=== PATIENT | male | born 1995 | race Caucasian/White ===

== ENCOUNTER 2017-01-14 14:31 | Emergency (ER) | payer OTHER ==
[2017-01-14 14:43] VITALS: BP 128/70; PULSE 96; RESP 20; TEMP 98.7; O2SAT 99
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
--- NOTE | 2017-01-14 16:00 | RAD ---
PROCEDURE: Radiographs of the Right Shoulder HISTORY: right shoulder, pain No antecedent history of trauma provided. COMPARISON: No prior. FINDINGS: BONES: Normal. No fracture. JOINTS: Normal. Glenohumeral and acromioclavicular joints preserved. No osteoarthritis. SOFT TISSUES: Normal. OTHER FINDINGS: None. IMPRESSION: Normal radiographs of the right shoulder.
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
--- NOTE | 2017-01-14 16:35 | RAD ---
PROCEDURE: Radiographs of the Lumbar Spine. HISTORY: Low back pain COMPARISON: No prior. FINDINGS: BONES: Normal alignment. No listhesis. No fracture. DISC SPACES: Unremarkable. OTHER FINDINGS: None. IMPRESSION: Unremarkable radiographs of the lumbar spine.
[2017-01-14 16:37] LABS: RBC URINE 2 /hpf (0-3); URINE BACTERIA RARE (<OCC); URINE BILIRUBIN NEGATIVE (NEGATIVE); URINE BLOOD NEGATIVE (NEGATIVE); URINE COLOR YELLOW (YELLOW); URINE GLUCOSE (UA) NEG (Normal); URINE KETONE NEGATIVE (NEGATIVE); URINE LEUKOCYTE ESTERASE NEG Leu/uL (Negative); URINE PROTEIN NEGATIVE (NEGATIVE); URINE UROBILINOGEN 0.2-1.0 mg/dL (0.2-1.0); WBC URINE < 1 /hpf (0-5)
--- NOTE | 2017-01-14 16:37 | CT ---
PROCEDURE: CT HEAD WITHOUT CONTRAST. HISTORY: head injury COMPARISON: 08/20/2014 TECHNIQUE: Axial computed tomography images were obtained through the head/brain without intravenous contrast. Radiation dose: Total exam DLP = 950.09 mGy-cm. This CT exam was performed using one or more of the following dose reduction techniques: Automated exposure control, adjustment of the mA and/or kV according to patient size, and/or use of iterative reconstruction technique. FINDINGS: HEMORRHAGE: No intracranial hemorrhage. BRAIN: No mass effect or edema. No atrophy or chronic microvascular ischemic changes. VENTRICLES: Unremarkable. No hydrocephalus. CALVARIUM: Unremarkable. PARANASAL SINUSES: Unremarkable as visualized. No significant inflammatory changes. MASTOID AIR CELLS: Unremarkable as visualized. No inflammatory changes. OTHER FINDINGS: None. IMPRESSION: No intracranial hemorrhage. Unremarkable head CT examination.
== END 2017-01-14 17:28 | disposition home or self-care (01) ==
LOC: H.ER 14:31
DX: S09.90XA Unspecified injury of head, initial encounter (principal); M54.9 Dorsalgia, unspecified; M25.511 Pain in right shoulder; M25.561 Pain in right knee; Y35.813A Legal intervention involving manhandling, suspect injured, initial encounter; Y92.410 Unspecified street and highway as the place of occurrence of the external cause

== ENCOUNTER 2017-08-04 06:58 | Emergency (ER) | payer OTHER ==
[2017-08-04 07:13] VITALS: BP 140/65; PULSE 92; RESP 18; TEMP 97.7; O2SAT 98
[2017-08-04] MEDS ORDERED: Sodium Chloride 0.9% 1,000 ML IV STA (07:27)
[2017-08-04] MEDS ORDERED: Iohexol 240 (50 ml) PO ONE (07:27)
[2017-08-04] MEDS ORDERED: Iohexol 240 (50 ml) ONE (07:34)
--- NOTE | 2017-08-04 07:41 | ED PDOC ---
HPI: Abdomen Time Seen by Provider: 08/04/17 07:09 Chief Complaint (Nursing): Abdominal Pain Chief Complaint (Provider): Abdominal Pain History Per: Patient History/Exam Limitations: no limitations Onset/Duration Of Symptoms: Days (x1) Current Symptoms Are (Timing): Still Present Additional Complaint(s): Andrew Rich is a 21 year old male presenting to the ED for an evaluation of diffuse abdominal pain associated with nausea and constipation occurring since yesterday. The patient reports this pain is sharp, constant, worsens with movement, and also states taking Tums without relief. He reports last bowel movement occurring at 8 PM. He denies vomiting, chest pain, testicular pain, dysuria, fever, chills, shortness of breath, dizziness, numbness, tingling, weakness, or headache. PMD: None Provided Past Medical History Reviewed: Historical Data, Nursing Documentation, Vital Signs Vital Signs: Last Vital Signs Temp 97.7 F 08/04/17 07:12 Pulse 92 H 08/04/17 07:12 Resp 18 08/04/17 07:12 BP 140/65 08/04/17 07:12 Pulse Ox 98 08/04/17 07:46 - Medical History PMH: No Chronic Diseases - Surgical History Surgical History: No Surg Hx - Family History Family History: States: No Known Family Hx - Social History Alcohol: None Drugs: Denies - Home Medications Home Medications: Ambulatory Orders Medication Instructions Recorded Naproxen [Naprosyn] 500 mg PO Q12H #20 tab 08/20/14 Cyclobenzaprine [Cyclobenzaprine 10 mg PO Q8H PRN #12 tab 01/14/17 HCl] traMADol [Ultram] 50 mg PO Q6H PRN #5 tab 01/14/17 Ciprofloxacin HCl [Cipro] 500 mg PO BID 7 Days tab 08/04/17 Ibuprofen [Motrin] 600 mg PO TID 7 Days tab 08/04/17 Metronidazole [Flagyl] 500 mg PO TID 7 Days tablet 08/04/17 - Allergies Allergies/Adverse Reactions: Allergies Allergy/AdvReac Type Severity Reaction Status Date / Time No Known Allergies Allergy Verified 01/14/17 14:38 Review of Systems ROS Statement: Except As Marked, All Systems Reviewed And Found Negative Constitutional: Negative for: Fever, Chills Cardiovascular: Negative for: Chest Pain Respiratory: Negative for: Shortness of Breath Gastrointestinal: Positive for: Nausea, Abdominal Pain (diffuse), Constipation. Negative for: Vomiting, Diarrhea Genitourinary Male: Negative for: Dysuria, Frequency, Incontinence, Scrotal Pain , Penile Pain Neurological: Negative for: Weakness, Numbness, Headache, Dizziness, Other (no tingling) Physical Exam - Reviewed Nursing Documentation Reviewed: Yes Vital Signs Reviewed: Yes - Physical Exam Appears: Positive for: Non-toxic, No Acute Distress Head Exam: Positive for: ATRAUMATIC, NORMOCEPHALIC Skin: Positive for: Normal Color, Warm, Dry Eye Exam: Positive for: Normal appearance, EOMI Neck: Positive for: Normal, Painless ROM, Supple Cardiovascular/Chest: Positive for: Regular Rate, Rhythm, Chest Non Tender. Negative for: Murmur Respiratory: Positive for: Normal Breath Sounds. Negative for: Respiratory Distress Gastrointestinal/Abdominal: Positive for: Soft, Tenderness (mild diffuse), Guarding. Negative for: Distended Back: Positive for: Normal Inspection. Negative for: L CVA Tenderness, R CVA Tenderness, Vertebral Tenderness Extremity: Positive for: Normal ROM. Negative for: Pedal Edema, Deformity Neurologic/Psych: Positive for: Alert, Oriented (x3). Negative for: Motor/ Sensory Deficits - Laboratory Results Result Diagrams: 08/04/17 07:54 08/04/17 07:54 Interpretation Of Abn Labs: 12.2 wbc - ECG O2 Sat by Pulse Oximetry: 98 (RA) Pulse Ox Interpretation: Normal - CT Scan/US ct Other Rad Studies (CT/US): Read By Radiologist Other Rad Interpretation: colitis - Progress ED Course And Treament: 1200: Stable. AAOx3. Tolerated PO. Colitis. Fu with GI. Pain free. Medical Decision Making Medical Decision Making: Time: 07:09 Impression: Mild, diffuse abdominal pain with nausea and constipation Plan: * VBG * CMP * Lipase * CBC (with differential) * NS 0.9% 1,000 ml IV 1,000 mls/hr * Omnipaque 240 (50 mL) PO * Zofran 4 mg IV * CT Abd Pelvis PO & IV Contrast * [RAD] Chest portable * Reevaluation Scribe Attestation: Documented by Lyric Martin, acting as a scribe for Librado Stiles MD. Provider Scribe Attestation: All medical record entries made by the Scribe were at my direction and personally dictated by me. I have reviewed the chart and agree that the record accurately reflects my personal performance of the history, physical exam, medical decision making, and the department course for this patient. I have also personally directed, reviewed, and agree with the discharge instructions and disposition. Disposition - Clinical Impression Clinical Impression: Colitis - Patient ED Disposition Is Patient to be Admitted: No Counseled Patient/Family Regarding: Studies Performed, Diagnosis, Need For Followup, Rx Given - Disposition Referrals: Wander Rausch MD, PhD [Staff Provider] - 08/05/17 [facility] [Outside] - 08/05/17 Disposition: Routine/Home Disposition Time: 12:05 Condition: STABLE Additional Instructions: Return if not better in 3 days. Prescriptions: Ciprofloxacin HCl [Cipro] 500 mg PO BID 7 Days tab Ibuprofen [Motrin] 600 mg PO TID 7 Days tab Metronidazole [Flagyl] 500 mg PO TID 7 Days tablet Instructions: Colitis (ED) Forms: [employer] (Cuban)
[2017-08-04 07:54] LABS: VENOUS BLOOD GAS BASE EXCESS 4.6 mmol/L (0.0-2.0); VENOUS BLOOD GAS PCO2 48 mmHg (40-60); VENOUS BLOOD PH 7.41 (7.32-7.43)
[2017-08-04 07:58] LABS: BASO % 0.2 % (0.0-2.0); EOS # 0.1 K/uL (0.0-0.7); EOS % 0.6 % (0.0-4.0); HEMATOCRIT 46.7 % (35.0-51.0); LYMPH # 0.5 K/uL (1.0-4.3); LYMPH % 3.9 % (20.0-40.0); MEAN CELL VOLUME 87.7 fl (80.0-94.0); MEAN CORPUSCULAR HEMOGLOBIN 28.8 pg (27.0-31.0); MEAN CORPUSCULAR HGB CONC 32.8 g/dL (33.0-37.0); MEAN PLATELET VOLUME 9.2 fl (7.2-11.7); MONO # 0.6 K/uL (0.0-0.8); MONO % 5.1 % (0.0-10.0); NEUT % 90.2 % (50.0-75.0); NRBC % 0.1 % (0.0-0.0); PLATELET COUNT 201 K/uL (130-400); RED CELL DISTRIBUTION WIDTH 13.6 % (11.5-14.5); WHITE BLOOD COUNT 12.2 K/uL (4.8-10.8)
[2017-08-04 08:14] LABS: ALB/GLOB RATIO 1.1 (1.0-2.1); ALKALINE PHOSPHATASE 73 U/L (38-126); ALT/SGPT 67 U/L (21-72); AST/SGOT 48 U/L (17-59); BILIRUBIN,TOTAL 0.9 mg/dl (0.2-1.3); BLOOD UREA NITROGEN 12 mg/dl (9-20); CALCIUM 9.7 mg/dL (8.4-10.2); CARBON DIOXIDE 28 mmol/L (22-30); CHLORIDE 100 mmol/L (98-107); GFR AFRICAN-AMERICAN > 60; GLUCOSE,RANDOM 121 mg/dL (75-110); LIPASE 28 U/L (23-300); POTASSIUM 4.4 MMOL/L (3.6-5.0); SODIUM 137 mmol/l (132-148); TOTAL PROTEIN 8.2 G/DL (6.3-8.2)
--- NOTE | 2017-08-04 08:21 | RAD ---
HISTORY: dyspnea COMPARISON: No prior. FINDINGS: LUNGS: No active pulmonary disease. PLEURA: No significant pleural effusion identified, no pneumothorax apparent. CARDIOVASCULAR: Normal. OSSEOUS STRUCTURES: No significant abnormalities. VISUALIZED UPPER ABDOMEN: Normal. OTHER FINDINGS: None. IMPRESSION: No active disease.
[2017-08-04] MEDS ORDERED: Iohexol 300 100 ML IJ ONE (09:19)
[2017-08-04] MEDS ORDERED: Sodium Chloride 0.9% 50 ML IV ONE (09:19)
[2017-08-04 10:14] LABS: NEUTROPHIL 88 % (42-75); TOTAL CELLS COUNTED 100
--- NOTE | 2017-08-04 11:07 | CT ---
PROCEDURE: CT Abdomen and Pelvis with contrast HISTORY: Abdominal pain COMPARISON: None. TECHNIQUE: Contrast dose: 100 cc Omnipaque 300. Radiation dose: Total exam DLP = 583.89 mGy-cm. This CT exam was performed using one or more of the following dose reduction techniques: Automated exposure control, adjustment of the mA and/or kV according to patient size, and/or use of iterative reconstruction technique. FINDINGS: LOWER THORAX: Unremarkable. LIVER: Unremarkable. No gross lesion or ductal dilatation. GALLBLADDER AND BILE DUCTS: Unremarkable. PANCREAS: Unremarkable. No gross lesion or ductal dilatation. SPLEEN: Unremarkable. ADRENALS: Unremarkable. No mass. KIDNEYS AND URETERS: Unremarkable. No hydronephrosis. No solid mass. VASCULATURE: Unremarkable. No aortic aneurysm. BOWEL: Thickening of the wall of the ascending colon which may represent very mild right edward colitis. Transverse colon, descending colon, sigmoid and rectum are spared. APPENDIX: Normal appendix. PERITONEUM: Unremarkable. No free fluid. No free air. LYMPH NODES: Unremarkable. No enlarged lymph nodes. BLADDER: Unremarkable. REPRODUCTIVE: Unremarkable. BONES: No acute fracture. Bulging annulus at L4-5 and to lesser extent L5-S1 without focal disc herniation or canal stenosis. OTHER FINDINGS: None. IMPRESSION: Mild right-sided colitis. Otherwise, unremarkable study.
== END 2017-08-04 12:13 | disposition home or self-care (01) ==
LOC: H.ER 06:58
DX: K52.9 Noninfective gastroenteritis and colitis, unspecified (principal); K59.00 Constipation, unspecified
CPT/HCPCS: 71010; 74177; 80053; 82803; 83690; 85025; 96374; 99282; J2405; J7040; Q9966; Q9967